=== PATIENT | female | born 1985 | race Caucasian/White ===

== ENCOUNTER 2021-06-15 09:46 | Emergency (ER) | payer MEDICAID ==
[~2021-06-15] VITALS: Ht 152.4 cm; Wt 61.2 kg
[2021-06-15 09:55] VITALS: BP 121/83
--- NOTE | 2021-06-15 11:06 | ED EENT ---
History of Present Illness General Chief Complaint: Oral/Throat Problems Stated Complaint: SORE THROAT,SWOLLEN,COUGH Nursing Triage Note: PT AMB TO FT1 WITH COMPLAINT OF SORE THROAT FOR 3-4 DAYS Source: patient Exam Limitations: no limitations (VARSHA BENNETT APRN) History of Present Illness Date Seen by Provider: Jun 15, 2021 Time Seen by Provider: 10:54 Initial Comments This is a well-appearing 35-year-old female who presented to the ER with complaints of throat pain x4 days. States she has taken Ibuprofen with some relief. Denies fever, chills, cough, shortness of breath, nausea, vomiting, abdominal pain. Eating and drinking cold liquids well. (VARSHA BENNETT APRN) Allergies and Home Medications Allergies Uncoded Allergies: SULFA (Allergy, Unknown, 06/15/21) Patient Home Medication List Home Medication List Reviewed: Yes (VARSHA BENNETT APRN) Amoxicillin (Amoxicillin) 500 Mg Capsule, 500 MG PO Q12H Prescribed by: VARSHA BENNETT on 06/15/21 1129 Review of Systems Review of Systems Constitutional: no symptoms reported Eyes: No Symptoms Reported Ears: No Symptoms Reported Nose: no symptoms reported Mouth: no symptoms reported Throat: see HPI Respiratory: no symptoms reported Cardiovascular: no symptoms reported Gastrointestinal: no symptoms reported Musculoskeletal: no symptoms reported Skin: no symptoms reported Neurological: No Symptoms Reported (VARSHA BENNETT APRN) Past Tgnixvp-Fxbzdx-Hkagvx Hx Patient Social History Tobacco Use?: Yes Tobacco type used: Cigarettes Smoking Status: Current Everyday Smoker Use of E-Cig and/or Vaping dev: No Substance use?: Yes Substance type: Marijuana Alcohol Use?: No Pt feels they are or have been: No (VARSHA BENNETT APRN) Physical Exam Vital Signs Vital Signs - First Documented 06/15/21 09:55 Temp 36.2 Pulse 76 Resp 18 B/P (MAP) 121/83 (96) Pulse Ox 99 O2 Delivery Room Air (PATRICIA COUCH MD) Height, Weight, BMI Height: '" Weight: lbs. oz. kg; 26.00 BMI Method: General Appearance: WD/WN, no apparent distress Eyes: bilateral eye normal inspection, bilateral eye EOMI Ears: bilateral ear auricle normal, bilateral ear canal normal Nose: normal inspection; No discharge, No sinus tenderness Mouth/Throat: normal mouth inspection; No excessive drooling; pharynx tenderness; No tonsillar exudate, No tonsillar swelling, No trismus, No uvula swelling, No voice changes Neck: non-tender, full range of motion, supple, normal inspection Cardiovascular: regular rate, rhythm, no murmur Respiratory: lungs clear, normal breath sounds Neurologic/Psychiatric: no motor/sensory deficits, alert, normal mood/affect, oriented x 3 Skin: normal color, warm/dry (VARSHA BENNETT APRN) Progress/Results/Core Measures Results/Orders Blood Pressure Mean: 96 Progress Progress Note : Progress Note Patient examined and in no acute distress. No evidence of Peritonsillar abscess on exam. Refused COVID and Flu swabs. Discussed that this is likely pharyngitis likely from viral source but we can obtain throat culture to evaluate for bacterial infection and start on antibiotics while waiting for cultures. She is agreeable with plan. Offered Toradol IM for pain, she is agreeable to take Toradol. Discharge POC reviewed and she is agreeable with plan. (VARSHA BENNETT APRN) Departure Impression Primary Impression: Pharyngitis Disposition: HOME, SELF-CARE Condition: Stable Departure-Patient Inst. Decision time for Depature: 11:26 (VARSHA BENNETT CHLOROBUTADIENE SCRUBBER OPERATOR) Referrals: RENE FREEDMAN MD (PCP/Family) Primary Care Physician Patient Instructions: Sore Throat, Adult ED Add. Discharge Instructions: Plan: 1. Warm salt water gargles twice a day. 2. May take Ibuprofen 600mg every 6 hours as needed with food. 3. Continue to drink plenty of fluids. 4. We performed culture of throat, if we need to change your antibiotics we will call you. 5. Take antibiotics as directed and complete full course even if you begin to feel better. 6. Return for any new, concerning, or worsening symptoms. All discharge instructions reviewed with patient and/or family. Voiced understanding. Scripts Amoxicillin (Amoxicillin) 500 Mg Capsule 500 MG PO Q12H for 10 Days, #20 CAP 0 Refills Prov: VARSHA BENNETT APRN 06/15/21 Work/School Note: Work Release Form Date Seen in the Emergency Department: Jun 15, 2021 Return to Work: Jun 16, 2021 Restrictions: No Restrictions ATTENDING PHYSICIAN NOTE: I was physically present as attending physician in the emergency department during the care of this patient, but I was not directly involved in the decision making or delivery of care for this patient. (PATRICIA COUCH MD) VARSHA BENNETT CHLOROBUTADIENE SCRUBBER OPERATOR Jun 15, 2021 11:06 PATRICIA COUCH MD Jun 17, 2021 23:37
[2021-06-15] MEDS ORDERED: KETOROLAC 30 MG/ML VIAL IM ONE (11:15)
[2021-06-15] MEDS ORDERED: AMOX500C2 PO (11:29)
== END 2021-06-15 11:54 | disposition home or self-care (01) ==
LOC: ER 09:49
DX: J02.9 Acute pharyngitis, unspecified (principal); F17.210 Nicotine dependence, cigarettes, uncomplicated
CPT/HCPCS: 87070; 99284

== ENCOUNTER 2021-08-23 10:02 | Emergency (ER) | payer MEDICAID ==
[~2021-08-23] VITALS: Ht 152 cm; Wt 56.0 kg
[~2021-08-23 10:02] MED LIST: AMOX500C2 PO
[2021-08-23 11:04] LABS: BASOPHILS % (AUTO) 0 % (0-10); EOSINOPHILS % (AUTO) 1 % (0-10); HEMATOCRIT 38 % (35-52); HEMOGLOBIN 12.7 g/dL (11.5-16.0); LYMPHOCYTES # (AUTO) 2.6 10^3/uL (1.0-4.0); LYMPHOCYTES % (AUTO) 43 % (12-44); MEAN CORPUSCULAR HEMOGLOBIN 30 pg (25-34); MEAN CORPUSCULAR HGB CONC 33 g/dL (32-36); MEAN CORPUSCULAR VOLUME 91 fL (80-99); MEAN PLATELET VOLUME 9.3 fL (9.0-12.2); MONOCYTES # (AUTO) 0.4 10^3/uL (0.0-1.0); MONOCYTES % (AUTO) 7 % (0-12); NEUTROPHILS # (AUTO) 2.9 10^3/uL (1.8-7.8); NEUTROPHILS % (AUTO) 49 % (42-75); PLATELET COUNT 196 10^3/uL (130-400)
[2021-08-23 11:21] LABS: ALBUMIN 4.4 GM/DL (3.2-4.5)
[2021-08-23 11:22] LABS: CHLORIDE 106 MMOL/L (98-107); POTASSIUM 3.9 MMOL/L (3.6-5.0); SODIUM 140 MMOL/L (135-145)
[2021-08-23 11:23] LABS: CALCIUM 9.3 MG/DL (8.5-10.1)
[2021-08-23 11:24] LABS: GLUCOSE 93 MG/DL (70-105)
[2021-08-23 11:25] LABS: CARBON DIOXIDE 25 MMOL/L (21-32)
[2021-08-23 11:26] LABS: BILIRUBIN,TOTAL 0.6 MG/DL (0.1-1.0)
[2021-08-23 11:27] LABS: ALKALINE PHOSPHATASE 34 U/L (40-136)
[2021-08-23 11:28] LABS: CREATININE SERUM 0.73 MG/DL (0.60-1.30); GFR ESTIMATED 111
[2021-08-23 11:29] LABS: BUN/CREATININE RATIO 12
[2021-08-23 11:30] LABS: ALANINE AMINOTRANSFERASE 12 U/L (0-55)
--- NOTE | 2021-08-23 11:57 | ED Cardiac General ---
History of Present Illness General Chief Complaint: Chest Pain Stated Complaint: CP,SOB,DIZZINESS Nursing Triage Note: ARRIVED VIA AMB TO ROOM 01 WITH INTIAL COMPLAINTS OF CHEST PAIN. PT STATES SHE HAS HAD INCREASED CHEST PAIN, SOA, AND DIZZINESS FOR THE LAST 5 MONTHS BUT IT HAS BEEN GOING ON FOR 5 YEARS. DENIES CHEST PAIN AT THIS TIME. Source: patient Exam Limitations: no limitations History of Present Illness Date Seen by Provider: Aug 23, 2021 Time Seen by Provider: 11:56 Initial Comments This is a well appearing 36 yo female who presented to the ER with c/o palpitations for the past several years. States she has had palpitations for 5+ years but they have progressively worsened. When she has these episodes she will develop dizziness, some chest pain, and shortness of air. Usually her symptoms a re daily and only last a few mins to 15 minutes at most. Notes she has severe anxiety and will sometimes attribute her symptoms to her anxiety. States she has discussed with her PCP in past but does not feel anyone has taken the time to fully evaluate source. At this time she is not experiencing any symptoms. She would like "someone to find out what is going on". No fever, chills, cough, nausea, vomiting, diarrhea, abdominal pain. Allergies and Home Medications Allergies Uncoded Allergies: SULFA (Allergy, Unknown, 06/15/21) Patient Home Medication List Home Medication List Reviewed: Yes Discontinued Medications Amoxicillin (Amoxicillin) 500 Mg Capsule, 500 MG PO Q12H Discontinued Reason: No Longer Taking Prescribed by: VARSHA BENNETT on 06/15/21 1129 Last Action: Discontinued Review of Systems Review of Systems Constitutional: see HPI EENTM: No Symptoms Reported Respiratory: No Symptoms Reported Cardiovascular: See HPI Gastrointestinal: See HPI Genitourinary: No Symptoms Reported Musculoskeletal: no symptoms reported Skin: no symptoms reported Psychiatric/Neurological: No Symptoms Reported Endocrine: No Symptoms Reported Hematologic/Lymphatic: No Symptoms Reported All Other Systems Reviewed Negative Unless Noted: Yes Past Tyheygm-Fnkmvy-Ivtubm Hx Patient Social History Tobacco Use?: No Smoking Status: Current Everyday Smoker Substance use?: No Alcohol Use?: No Physical Exam Vital Signs Vital Signs - First Documented 08/23/21 10:07 Temp 37.0 Pulse 60 Resp 16 B/P (MAP) 106/55 (72) Pulse Ox 98 O2 Delivery Room Air Capillary Refill : Less Than 3 Seconds Height, Weight, BMI Height: '" Weight: lbs. oz. kg; 24.00 BMI Method: General Appearance: No Apparent Distress, WD/WN, Anxious HEENT: PERRL/EOMI, TMs Normal, Normal ENT Inspection, Pharynx Normal Neck: Full Range of Motion, Normal Inspection, Non Tender Respiratory: Chest Non Tender, Lungs Clear, Normal Breath Sounds, No Accessory Muscle Use, No Respiratory Distress Cardiovascular: Regular Rate, Rhythm, No Edema, No Murmur, Normal Peripheral Pulses; No Extra Beats Gastrointestinal: Normal Bowel Sounds, No Organomegaly, Non Tender, Soft Extremity: Normal Capillary Refill, Normal Range of Motion, No Calf Tenderness Neurologic/Psychiatric: Alert, Oriented x3, Normal Mood/Affect, nurse tech II-XII Norm as Tested Skin: Normal Color, Warm/Dry Progress/Results/Core Measures Results/Orders Lab Results Laboratory Tests Test 08/23/21 10:34 08/23/21 10:57 Range/Units Thyroid Stimulating Hormone (TSH) 0.23 L 0.35-4.94 UIU/ML White Blood Count 6.0 4.3-11.0 10^3/uL Red Blood Count 4.18 3.80-5.11 10^6/uL Hemoglobin 12.7 11.5-16.0 g/dL Hematocrit 38 35-52 % Mean Corpuscular Volume 91 80-99 fL Mean Corpuscular Hemoglobin 30 25-34 pg Mean Corpuscular Hemoglobin Concent 33 32-36 g/dL Red Cell Distribution Width 12.4 10.0-14.5 % Platelet Count 196 130-400 10^3/uL Mean Platelet Volume 9.3 9.0-12.2 fL Immature Granulocyte % (Auto) 0 % Neutrophils (%) (Auto) 49 42-75 % Lymphocytes (%) (Auto) 43 12-44 % Monocytes (%) (Auto) 7 0-12 % Eosinophils (%) (Auto) 1 0-10 % Basophils (%) (Auto) 0 0-10 % Neutrophils # (Auto) 2.9 1.8-7.8 10^3/uL Lymphocytes # (Auto) 2.6 1.0-4.0 10^3/uL Monocytes # (Auto) 0.4 0.0-1.0 10^3/uL Eosinophils # (Auto) 0.0 0.0-0.3 10^3/uL Basophils # (Auto) 0.0 0.0-0.1 10^3/uL Immature Granulocyte # (Auto) 0.0 0.0-0.1 10^3/uL Sodium Level 140 135-145 MMOL/L Potassium Level 3.9 3.6-5.0 MMOL/L Chloride Level 106 98-107 MMOL/L Carbon Dioxide Level 25 21-32 MMOL/L Anion Gap 9 5-14 MMOL/L Blood Urea Nitrogen 9 7-18 MG/DL Creatinine 0.73 0.60-1.30 MG/DL Estimat Glomerular Filtration Rate 111 BUN/Creatinine Ratio 12 Glucose Level 93 70-105 MG/DL Calcium Level 9.3 8.5-10.1 MG/DL Corrected Calcium 9.0 8.5-10.1 MG/DL Total Bilirubin 0.6 0.1-1.0 MG/DL Aspartate Amino Transf (AST/SGOT) 14 5-34 U/L Alanine Aminotransferase (ALT/SGPT) 12 0-55 U/L Alkaline Phosphatase 34 L 40-136 U/L Troponin I < 0.028 <0.028 NG/ML C-Reactive Protein High Sensitivity 0.02 0.00-0.50 MG/DL Total Protein 7.0 6.4-8.2 GM/DL Albumin 4.4 3.2-4.5 GM/DL My Orders Orders - VARSHA BENNETT APRN Thyroid Stimulating Hormone (08/23/21 11:56) Ecg Holter 48hrs To 7 Days (08/23/21 12:36) Vital Signs/I&O 08/23/21 08/23/21 10:07 13:30 Temp 37.0 Pulse 60 73 Resp 16 16 B/P (MAP) 106/55 (72) 120/81 Pulse Ox 98 100 O2 Delivery Room Air Room Air Blood Pressure Mean: 72 Progress Progress Note : Progress Note Patient examined and in no acute distress. At this time she is not having any symptoms. We will go ahead and initiate cardiac work-up although the sound like a chronic longstanding issue. Discussed having plans to place on 48-hour Holter monitor to further evaluate source for palpitation, she is agreeable with this plan. Labs reviewed and are relatively unremarkable, cardiac enzymes are within normal limits. Her TSH is slightly low, will have her follow up with her PCP for further evaluation. Orders placed for 48 holter monitor and will be faxed to her PCP. Discharge POC reviewed and she is agreeable with plan. Initial ECG Impression Date: Aug 23, 2021 Initial ECG Impression Time: 10:03 Initial ECG Rate: 32 Initial ECG Rhythm: Normal Sinus Initial ECG Intervals: Normal Initial ECG Comparisson: No Previous ECG Available Diagnostic Imaging Diagonstic Imaging: Xray Plain Films/CT/US/NM/MRI: chest Comments [facility], [place] NAME: RACQUEL GALE [facility] REC#: [id number] PT STATUS: REG ER : 1985 PHYSICIAN: BOONE SMITH MD ADMIT DATE: 08/23/21/ER Signed Date of Exam:08/23/21 CHEST 1 VIEW, AP/PA ONLY CHEST 1 VIEW, AP/PA ONLY Indication: Chest pain. Comparison: None available. Findings: No focal airspace disease in the visualized lungs. Please note that the posterior lower lobes are poorly evaluated by portable radiography. No pleural effusion or pneumothorax. Normal cardiomediastinal silhouette. Impression: 1. No acute cardiopulmonary process by portable radiography. Dictated by: Dictated on workstation # [id number] Dict: 08/23/21 1156 Trans: 08/23/21 1156 [facility] [id number] Interpreted by: MAIA PALACIOS MD Electronically signed by: MAIA PALACIOS MD 08/23/21 1156 Departure Impression Primary Impression: Palpitations Disposition: 01 HOME, SELF-CARE Condition: Improved Departure-Patient Inst. Decision time for Depature: 13:05 Referrals: RENE FREEDMAN MD (PCP/Family) Primary Care Physician Patient Instructions: Palpitations (DC) Add. Discharge Instructions: Plan: 1. Follow up with Dr. Freedman regarding TSH. 2. Orders placed for 48 hour holter monitor. Will have results faxed to Dr. Freedman office. 3. Avoid caffeine, energy drinks, or other stimulants as this may worsen your symptoms. 4. Return for any new, concerning, or worsening symptoms. All discharge instructions reviewed with patient and/or family. Voiced understanding. Work/School Note: Work Release Form Date Seen in the Emergency Department: Aug 23, 2021 Return to Work: Aug 24, 2021 Restrictions: No Restrictions Copy Copies To 1: RENE FREEDMAN MD, STORMY D APRN Aug 23, 2021 11:57
[2021-08-23 13:30] VITALS: BP 120/81
== END 2021-08-23 13:25 | disposition home or self-care (01) ==
LOC: EDUNIT# 10:02 → ER 10:03
DX: R00.2 Palpitations (principal); F17.200 Nicotine dependence, unspecified, uncomplicated
CPT/HCPCS: 36415; 71045; 80053; 84443; 84484; 85025; 86141; 93005

== ENCOUNTER → 2021-08-29 | Outpatient (CLI) | payer MEDICAID | LOC: CARD 09:00 | PROVIDERS: ATTEND Nurse Practitioner Family | DX: R00.2 Palpitations (principal) | CPT/HCPCS: 93225; 93226 ==

== ENCOUNTER 2021-11-09 05:09 | Emergency (ER) | payer MEDICAID ==
[~2021-11-09] VITALS: Ht 152.4 cm; Wt 59.9 kg
--- NOTE | 2021-11-09 05:37 | ED General ---
General Stated Complaint: THROAT INFLAMED Source of Information: Patient Exam Limitations: No Limitations (BERTRAM CARTER DO) History of Present Illness Date Seen by Provider: Nov 09, 2021 Time Seen by Provider: 05:25 Initial Comments 36-year-old female presents for right throat pain. Symptoms started about 2 days ago and have been progressively worsening. She has painful swallowing but no difficulty swallowing. No trismus. No fevers or chills. She feels as thoug h the right side of her neck is swollen. No airway compromise. No sick contacts. (BERTRAM CARTER DO) Allergies and Home Medications Allergies Uncoded Allergies: SULFA (Allergy, Unknown, 06/15/21) Patient Home Medication List Home Medication List Reviewed: Yes (BERTRAM CARTER DO) Review of Systems Review of Systems Constitutional: no symptoms reported EENTM: throat pain, throat swelling Respiratory: no symptoms reported Cardiovascular: no symptoms reported Gastrointestinal: no symptoms reported Genitourinary: no symptoms reported Musculoskeletal: no symptoms reported Skin: no symptoms reported Psychiatric/Neurological: No Symptoms Reported Hematologic/Lymphatic: No Symptoms Reported Immunological/Allergic: no symptoms reported (BERTRAM CARTER DO) Past Bcasacm-Mwrakh-Sootfe Hx Patient Social History Tobacco Use?: Yes Smoking Status: Former Smoker Use of E-Cig and/or Vaping dev: Yes E-Cig or Vaping type used: Nicotine Use of E-Cig and/or Vaping Silver: Current Everyday User Substance use?: No Alcohol Use?: No (BERTRAM CARTER DO) Family Medical History Reviewed Nursing Family Hx (BERTRAM CARTER DO) No Pertinent Family Hx (BERTRAM CARTER DO) Physical Exam Vital Signs Vital Signs - First Documented 11/09/21 05:29 Temp 37.6 Pulse 84 Resp 16 B/P (MAP) 120/76 (91) Pulse Ox 97 O2 Delivery Room Air (KEYLA WYATT MD) Vital Signs Capillary Refill : (BERTRAM CARTER DO) Height, Weight, BMI Height: '" Weight: lbs. oz. kg; 24.00 BMI Method: General Appearance: No Apparent Distress, WD/WN HEENT: TMs Normal, Tonsillar Enlargement (Significant swelling of the right tonsil. The uvula is midline but tonsils are quite enlarged with purulent exudate.) Respiratory: Chest Non Tender, Lungs Clear, Normal Breath Sounds, No Accessory Muscle Use, No Respiratory Distress Cardiovascular: Regular Rate, Rhythm, No Edema, No Gallop, No JVD, No Murmur, Normal Peripheral Pulses Gastrointestinal: Normal Bowel Sounds, No Organomegaly, No Pulsatile Mass, Non Tender, Soft Extremity: Normal Capillary Refill, Normal Inspection, Normal Range of Motion, Non Tender, No Calf Tenderness Neurologic/Psychiatric: Alert, Oriented x3, No Motor/Sensory Deficits Skin: Normal Color, Warm/Dry (EMMACytRxH L DO) Progress/Results/Core Measures Suspected Sepsis SIRS Temperature: Pulse: Respiratory Rate: Blood Pressure / Mean: ([employer] L DO) Results/Orders Lab Results Laboratory Tests Test 11/09/21 05:40 Range/Units White Blood Count 10.4 4.3-11.0 10^3/uL Red Blood Count 4.07 3.80-5.11 10^6/uL Hemoglobin 12.6 11.5-16.0 g/dL Hematocrit 37 35-52 % Mean Corpuscular Volume 91 80-99 fL Mean Corpuscular Hemoglobin 31 25-34 pg Mean Corpuscular Hemoglobin Concent 34 32-36 g/dL Red Cell Distribution Width 12.2 10.0-14.5 % Platelet Count 185 130-400 10^3/uL Mean Platelet Volume 9.7 9.0-12.2 fL Immature Granulocyte % (Auto) 0 % Neutrophils (%) (Auto) 78 H 42-75 % Lymphocytes (%) (Auto) 15 12-44 % Monocytes (%) (Auto) 6 0-12 % Eosinophils (%) (Auto) 0 0-10 % Basophils (%) (Auto) 0 0-10 % Neutrophils # (Auto) 8.1 H 1.8-7.8 10^3/uL Lymphocytes # (Auto) 1.5 1.0-4.0 10^3/uL Monocytes # (Auto) 0.7 0.0-1.0 10^3/uL Eosinophils # (Auto) 0.0 0.0-0.3 10^3/uL Basophils # (Auto) 0.0 0.0-0.1 10^3/uL Immature Granulocyte # (Auto) 0.0 0.0-0.1 10^3/uL Sodium Level 139 135-145 MMOL/L Potassium Level 4.1 3.6-5.0 MMOL/L Chloride Level 107 98-107 MMOL/L Carbon Dioxide Level 21 21-32 MMOL/L Anion Gap 11 5-14 MMOL/L Blood Urea Nitrogen 6 L 7-18 MG/DL Creatinine 0.79 0.60-1.30 MG/DL Estimat Glomerular Filtration Rate 101 BUN/Creatinine Ratio 8 Glucose Level 103 70-105 MG/DL Calcium Level 9.0 8.5-10.1 MG/DL (KEYLA WYATT MD) My Orders Orders - KEYLA WYATT MD Urine Bedside (11/09/21 06:18) Ketorolac Injection (Toradol Injection) (11/09/21 07:45) (KEYLA WYATT MD) Medications Given in ED Current Medications Medications Dose Ordered Sig/Milton Route Start Time Stop Time Status Last Admin Dose Admin Clindamycin Phosphate/Dextrose 50 ml @ 100 mls/hr ONCE ONCE IV 11/09/21 05:45 11/09/21 06:14 DC 11/09/21 05:49 100 MLS/HR Dexamethasone Sodium Phosphate 6 mg ONCE ONCE IV 11/09/21 05:45 11/09/21 05:46 DC 11/09/21 05:49 6 MG Iohexol 100 ml ONCE ONCE IV 11/09/21 07:00 11/09/21 07:02 DC 11/09/21 07:26 75 ML Ketorolac Tromethamine 15 mg ONCE ONCE IVP 11/09/21 07:45 11/09/21 07:46 DC 11/09/21 07:39 15 MG Sodium Chloride 100 ml ONCE ONCE IV 11/09/21 07:00 11/09/21 07:02 DC 11/09/21 07:26 80 ML (KEYLA WYATT MD) Vital Signs/I&O 11/09/21 05:29 Temp 37.6 Pulse 84 Resp 16 B/P (MAP) 120/76 (91) Pulse Ox 97 O2 Delivery Room Air (KEYLA WYATT MD) Vital Signs/I&O Capillary Refill : (BERTRAM CARTER DO) Progress Note : Time: 08:13 Progress Note Patient care assumed at shift change with CT pending to rule out pharyngeal abscess. CT shows simple tonsillitis. Patient is reevaluated, she is warm and clammy. She does have significant tonsillar erythema and swelling right greater than left with exudate. Shotty anterior cervical lymphadenopathy. She has been treated with Decadron and clindamycin IV. We will send her home on clindamycin 3 times daily for 10 days. Recommend warm salt water gargles and 600 mg ibuprofen every 6 hours. Return precautions provided. She verbalized understanding. All questions are sought and answered. Patient is stable for discharge. (KEYLA WYATT MD) Diagnostic Imaging Diagonstic Imaging: CT Comments [facility], [place] NAME: RACQUEL GALE [facility] REC#: [id number] PT STATUS: REG ER : 1985 PHYSICIAN: BERTRAM CARTER DO ADMIT DATE: 11/09/21/ER Draft Date of Exam:11/09/21 CT NECK (SOFT TISSUE) W PROCEDURE: CT neck soft tissue with contrast. TECHNIQUE: Multiple contiguous axial images were obtained through the neck after the administration of contrast. Auto Exposure Controls were utilized during the CT exam to meet ALARA standards for radiation dose reduction. INDICATION: Right tonsillar swelling The right pharyngeal tonsil is asymmetrically larger on the right. There are no pathologic fluid collections to suggest abscess. The parapharyngeal fat planes are preserved. There is no prevertebral soft tissue swelling. Epiglottis and larynx appear normal. Submandibular and parotid glands appear normal. Neurovascular bundles are unremarkable. Thyroid is normal. IMPRESSION: Large right tonsil consistent with tonsillitis. Dictated on workstation # [id number] Dict: 11/09/21 0729 Trans: 11/09/21 0741 [facility] [id number] Interpreted by: MICHAEL DUFFY MD Electronically signed by: (KEYLA WYATT MD) Departure Impression Primary Impression: Pharyngitis Qualified Codes: J02.9 - Acute pharyngitis, unspecified Disposition: 01 HOME, SELF-CARE Condition: Improved Departure-Patient Inst. Decision time for Depature: 08:09 (KEYLA WYATT MD) Referrals: [facility],[place] PHYSICIAN (PCP) Primary Care Physician Patient Instructions: Sore Throat, Adult ED Add. Discharge Instructions: Drink plenty of fluids to stay well-hydrated. Vmlp-rey-ebbedee ibuprofen, 3 tablets which is 600 mg every 6 hours with food as needed for pain/temp over 100.4. Warm salt water gargles will help with your throat pain. Take the antibiotics as directed for the next 10 days. If you develop worsening sore throat, high fever, difficulty breathing please come back to the emergency room for reevaluation. Scripts Clindamycin HCl (Clindamycin HCl) 300 Mg Capsule 300 MG PO TID for 10 Days, #30 CAP Prov: KEYLA WYATT MD 11/09/21 Work/School Note: Work Release Form Date Seen in the Emergency Department: Nov 09, 2021 Return to Work: Nov 09, 2021 Other Restrictions Listed Below: Off work 11/09 if worsening symptoms. BERTRAM CARTER DO Nov 09, 2021 05:37 KEYLA WYATT MD Nov 09, 2021 08:14
[2021-11-09] MEDS ORDERED: CLINDAMYCIN 600 MG/50 ML IVPB 50 ML IV ONE (05:45)
[2021-11-09 05:48] LABS: BASOPHILS % (AUTO) 0 % (0-10); EOSINOPHILS % (AUTO) 0 % (0-10); HEMATOCRIT 37 % (35-52); HEMOGLOBIN 12.6 g/dL (11.5-16.0); LYMPHOCYTES # (AUTO) 1.5 10^3/uL (1.0-4.0); LYMPHOCYTES % (AUTO) 15 % (12-44); MEAN CORPUSCULAR HEMOGLOBIN 31 pg (25-34); MEAN CORPUSCULAR HGB CONC 34 g/dL (32-36); MEAN CORPUSCULAR VOLUME 91 fL (80-99); MEAN PLATELET VOLUME 9.7 fL (9.0-12.2); MONOCYTES # (AUTO) 0.7 10^3/uL (0.0-1.0); MONOCYTES % (AUTO) 6 % (0-12); NEUTROPHILS # (AUTO) 8.1 10^3/uL (1.8-7.8); NEUTROPHILS % (AUTO) 78 % (42-75); PLATELET COUNT 185 10^3/uL (130-400); WHITE BLOOD COUNT 10.4 10^3/uL (4.3-11.0)
[2021-11-09 06:01] LABS: POTASSIUM 4.1 MMOL/L (3.6-5.0)
[2021-11-09 06:06] LABS: CREATININE SERUM 0.79 MG/DL (0.60-1.30)
[2021-11-09] MEDS ORDERED: IOHEXOL 350 MG/ML 100 ML (OMNIPAQUE 350) VIAL IV ONE (07:00)
[2021-11-09] MEDS ORDERED: HOLD METFORMIN - RECEIVED CONTRAST 20 ML VIAL IV SCH (07:00)
[2021-11-09] MEDS ORDERED: NS 100 ML (IVPB) BAG IV ONE (07:00)
--- NOTE | 2021-11-09 07:43 | Diagnostic Imaging Report ---
PROCEDURE: CT neck soft tissue with contrast. TECHNIQUE: Multiple contiguous axial images were obtained through the neck after the administration of contrast. Auto Exposure Controls were utilized during the CT exam to meet ALARA standards for radiation dose reduction. INDICATION: Right tonsillar swelling The right pharyngeal tonsil is asymmetrically larger on the right. There are no pathologic fluid collections to suggest abscess. The parapharyngeal fat planes are preserved. There is no prevertebral soft tissue swelling. Epiglottis and larynx appear normal. Submandibular and parotid glands appear normal. Neurovascular bundles are unremarkable. Thyroid is normal. IMPRESSION: Large right tonsil consistent with tonsillitis. Dictated by: Dictated on workstation # [id number]
[2021-11-09] MEDS ORDERED: KETOROLAC 30 MG/ML VIAL IVP ONE (07:45)
[2021-11-09] MEDS ORDERED: CLIN-144 PO (08:13)
[2021-11-09 08:21] VITALS: BP 118/76
== END 2021-11-09 08:21 | disposition home or self-care (01) ==
LOC: EDUNIT# 05:09 → ER 05:12
DX: J02.9 Acute pharyngitis, unspecified (principal); F17.290 Nicotine dependence, other tobacco product, uncomplicated; Z28.310 Unvaccinated for COVID-19
CPT/HCPCS: 36415; 70491; 80048; 84703; 85025

== ENCOUNTER → 2022-02-09 | Outpatient (CLI) | payer MEDICAID ==
[~2022-02-09] MED LIST changes: +CLIN-144 PO
--- NOTE | 2022-02-09 09:47 | Diagnostic Imaging Report ---
PROCEDURE: US Thyroid. TECHNIQUE: Multiple real-time grayscale images were obtained of the thyroid in various projections. INDICATION: Hyperthyroidism. Right lobe of thyroid measures 5.5 x 1.3 x 1.5 cm, left lobe measures 5.4 x 1.5 x 1.6 cm. Isthmus is 1 mm in thickness. Both lobes of the thyroid are homogeneous in echotexture. No discrete mass is detected. IMPRESSION: Unremarkable thyroid ultrasound. Dictated by: Dictated on workstation # [id number]
== END ==
LOC: RAD 08:12
PROVIDERS: ATTEND Nurse Practitioner
DX: E05.90 Thyrotoxicosis, unspecified without thyrotoxic crisis or storm (principal)
CPT/HCPCS: 76536